=== PATIENT | female | born 1940 | race Caucasian/White ===

== ENCOUNTER 2023-10-15 22:15 | Inpatient (IN) | payer MEDICARE, BC ==
[2023-10-15 22:59] VITALS: BMI 20.2
[2023-10-15] MEDS ORDERED: Acetaminophen 650 MG Suppository PR PRN (23:08)
[2023-10-15] MEDS ORDERED: Ondansetron ODT 4 MG TAB PO PRN (23:08)
[2023-10-15] MEDS ORDERED: Calcium Carbonate 500 MG ChewTAB PO PRN (23:08)
[2023-10-15] MEDS ORDERED: Ondansetron PF 4 MG/2 ML Vial IVP PRN (23:08)
[2023-10-16] MEDS: hydrALAZINE 20 MG/ML VIAL SLOW IVP PRN (00:27)
[2023-10-16] MEDS ORDERED: hydrALAZINE 20 MG/ML VIAL SLOW IVP PRN (00:37)
[2023-10-16 06:47] LABS: #Basophils Less than 0.03 10x3/uL (0.0-0.2); %Basophils 0.3 % (0.0-1.0); %Eosinophils 1.5 % (0.0-10.0); %Lymphocytes 17.5 % (21.0-51.0); %Monocytes 5.2 % (0.0-10.0); %Neutrophils 75.2 % (42.0-75.0); Hematocrit 39.8 % (36.0-47.0); Hemoglobin 13.2 g/dL (12.0-16.0); Mean Corpuscular HGB CONC 33.2 g/dL (32.0-36.0); Mean Corpuscular Hemoglobin 29.5 pg (27.0-31.0); Mean Platelet Volume 9.6 fL (7.4-10.4); Platelet Count 314 10x3/uL (130-400); RBC Distribution Width 14.7 % (11.5-14.5); Red Blood Cell (RBC) Count 4.47 mill/uL (4.20-5.40)
[2023-10-16 07:02] LABS: Hemoglobin A1c 5.6 % (4.0-6.0)
[2023-10-16 07:06] LABS: ALT (SGPT) 11 U/L (8-55); AST (SGOT) 13 U/L (5-34); Albumin 3.3 g/dL (3.4-4.8); Alkaline Phosphatase 77 U/L (40-110); Anion Gap 16 mmol/L (10-20); BUN (Urea Nitrogen) 10 mg/dL (9.8-20.1); Bilirubin, Total 0.4 mg/dL (0.2-1.2); Calc. Creatinine Clearance 61 mL/min (70-130); Calcium 9.4 mg/dL (7.8-10.44); Carbon Dioxide 22 mmol/L (23-31); Cardiac Risk 5.5 (Less than 4.5); Chloride 105 mmol/L (98-107); Cholesterol 225 mg/dl (< 200 Desired); Estimated GFR 89; Globulin 3.5 g/dL (2.4-3.5); Glucose 111 mg/dL (83-110); HDL Cholesterol 41 mg/dL (>60 Neg Risk); LDL Cholesterol, Calculated 159 mg/dL; Potassium 3.9 mmol/L (3.5-5.1); Protein, Total 6.8 g/dL (5.8-8.1); Sodium 139 mmol/L (136-145); Triglycerides 127 mg/dL (Less than 150)
[2023-10-16] MEDS: Amlodipine 5 MG TAB PO SCH (08:16)
[2023-10-16] MEDS: Aspirin 81 mg Enteric Coated Tablet PO SCH (08:16)
[2023-10-16] MEDS: Lorazepam 0.5 MG TAB PO SCH (09:53)
[2023-10-16] MEDS ORDERED: Iopamidol-370 76% 500 ML MDV (1 ML CHARGE) ONE (12:43)
[2023-10-16] MEDS: Acetaminophen 325 MG TAB PO PRN (20:20)
[2023-10-16] MEDS: Atorvastatin Calcium 40 MG TAB PO SCH (20:20)
[2023-10-17] MEDS ORDERED: Amlodipine 5 MG TAB PO SCH (07:25)
[2023-10-17] MEDS: Clopidogrel Bisulfate 75 MG TAB PO SCH (08:15)
[2023-10-17] MEDS: Amlodipine 10 MG TAB PO SCH (08:15)
[2023-10-18 08:58] VITALS: BP 184/87
[2023-10-18] MEDS ORDERED: EPINEPHrine 1 MG/ML VIAL ONE (10:06)
[2023-10-18] MEDS ORDERED: Heparin 5,000 UNITS/ML VIAL ONE (10:06)
[2023-10-18] MEDS ORDERED: Bupivacaine PF 0.5% 30 ML VIAL ONE (10:07)
[2023-10-18] MEDS ORDERED: CEFAZOLIN 2 GM VIAL ONE ×2 (10:38→14:02)
[2023-10-18] MEDS ORDERED: Sodium Chloride 0.9% 100 ML ONE ×2 (10:38→14:02)
[2023-10-18] MEDS ORDERED: PROPOFOL 20 ML ONE (10:50)
[2023-10-18] MEDS ORDERED: fentaNYL PF 100 MCG/2 ML SYRINGE ONE (10:50)
[2023-10-18] MEDS ORDERED: Rocuronium Bromide 10 MG/ML (10ML VIAL) ONE (11:00)
[2023-10-18] MEDS ORDERED: ePHEDrine Sulfate 50 MG/10 ML VIAL ONE (11:14)
[2023-10-18] MEDS ORDERED: PHENYLEPHRINE-NS 100 MCG/ML 10 ML SYRINGE ONE (11:43)
[2023-10-18] MEDS ORDERED: Dexamethasone 20 MG/5 ML VIAL ONE (11:49)
[2023-10-18] MEDS ORDERED: Ondansetron PF 4 MG/2 ML Vial ONE (11:49)
[2023-10-18] MEDS ORDERED: CEFAZOLIN 2 GM in Sodium Chloride 0.9% 100 ML IVPB SCH (12:00)
[2023-10-18] MEDS ORDERED: Nitroglycerin 50 MG/250 ML BOT 250 ML IVPB PRN (12:55)
[2023-10-18] MEDS ORDERED: fentaNYL 50 mcg/mL 1 mL Vial SLOW IVP PRN (12:55)
[2023-10-18] MEDS ORDERED: traMADol HCl 50 MG TAB PO PRN ×2 (12:55)
[2023-10-18] MEDS ORDERED: Ipratropium/Albuterol 3 ML NEB NEB PRN (12:55)
[2023-10-18] MEDS ORDERED: Phenylephrine 40 MG/NS 250 ML 40 MG in Premix 1 BAG IVPB PRN (13:55)
[2023-10-18] MEDS: Sodium Chloride 0.9% 1,000 ML IV SCH (14:08)
[2023-10-18] MEDS: Acetaminophen 325 MG TAB PO PRN (16:19)
[2023-10-18] MEDS: CEFAZOLIN 2 GM in Sodium Chloride 0.9% 100 ML IVPB SCH (17:27)
[2023-10-18] MEDS: Losartan 25 MG TAB PO SCH (23:44)
[2023-10-19] MEDS ORDERED: Melatonin 3 MG TAB PO PRN (00:40)
[2023-10-19] MEDS: Melatonin 3 MG TAB PO SCH (00:59)
[2023-10-19] MEDS: Aspirin Chewable 81 MG TAB PO SCH (08:01)
[2023-10-19] MEDS: Losartan 25 MG TAB PO SCH (08:01)
[2023-10-19 08:09] VITALS: TEMP 98.3
== END 2023-10-19 10:38 | disposition home or self-care (01) | DRG 35 ==
LOC: 2SW 22:15 → OBSVTOIN 10-16 14:22 → CCU 10-18 11:00
PROVIDERS: ADMIT Family Medicine; ATTEND Family Medicine
PROC: 037K3DZ Dilation of Right Internal Carotid Artery with Intraluminal Device, Percutaneous Approach (ICD-10-PCS; principal; 2023-10-18)
PROC: B313YZZ Fluoroscopy of Right Common Carotid Artery using Other Contrast (ICD-10-PCS; 2023-10-18)
DX: I63.231 Cerebral infarction due to unspecified occlusion or stenosis of right carotid arteries (principal); I16.1 Hypertensive emergency; H35.30 Unspecified macular degeneration; I10 Essential (primary) hypertension; Z88.2 Allergy status to sulfonamides; Z79.899 Other long term (current) drug therapy
CPT/HCPCS: 36415; 70496; 70498; 70551; 80053; 80061; 83036; 84443; 85025; 93306; 96374; C1725; C1769; C1876; C1884; G0378; J0171; J0360; J0665; J1100; J1644; J2405; J2704; J3490; J7050; Q9967

== ENCOUNTER 2024-02-01 07:24 | Outpatient (CLI) | payer MEDICARE, BC ==
[~2024-02-01 07:24] MED LIST: Iopamidol 370 76% 100 ML VIAL ONE
== END 2024-02-01 07:25 | disposition home or self-care (01) ==
LOC: CT 07:24
PROVIDERS: ATTEND Internal Medicine Cardiovascular Disease
DX: I71.40 Abdominal aortic aneurysm, without rupture, unspecified (principal)
CPT/HCPCS: 36415; 74174; 82565; Q9967

== ENCOUNTER 2024-02-21 10:00 | Inpatient (IN) | payer MEDICARE, BC ==
[2024-02-21 12:17] LABS: #Basophils Less than 0.03 10x3/uL (0.0-0.2); %Basophils 0.3 % (0.0-1.0); %Eosinophils 4.6 % (0.0-10.0); %Lymphocytes 22.6 % (21.0-51.0); %Monocytes 6.5 % (0.0-10.0); %Neutrophils 65.7 % (42.0-75.0); Hematocrit 37.9 % (36.0-47.0); Hemoglobin 12.1 g/dL (12.0-16.0); Mean Corpuscular HGB CONC 31.9 g/dL (32.0-36.0); Mean Corpuscular Hemoglobin 28.7 pg (27.0-31.0); Mean Corpuscular Volume 89.8 fL (78.0-98.0); Mean Platelet Volume 10.7 fL (7.4-10.4); Platelet Count 329 10x3/uL (130-400); RBC Distribution Width 14.7 % (11.5-14.5); Red Blood Cell (RBC) Count 4.22 mill/uL (4.20-5.40)
[2024-02-21 12:33] LABS: Anion Gap 15 mmol/L (10-20); BUN (Urea Nitrogen) 17 mg/dL (9.8-20.1); Calc. Creatinine Clearance 0 mL/min (70-130); Calcium 9.5 mg/dL (7.8-10.44); Carbon Dioxide 25 mmol/L (23-31); Chloride 103 mmol/L (98-107); Estimated GFR 64; Glucose 95 mg/dL (83-110); Sodium 139 mmol/L (136-145)
[2024-02-22] MEDS ORDERED: Heparin 10,000 UNITS/ 10 ML VIAL ONE ×2 (06:33→08:36)
[2024-02-22] MEDS ORDERED: EPINEPHrine 1 MG/ML VIAL ONE (06:34)
[2024-02-22] MEDS ORDERED: Bupivacaine PF 0.5% 30 ML VIAL ONE (06:34)
[2024-02-22] MEDS ORDERED: fentaNYL PF 100 MCG/2 ML SYRINGE ONE (06:45)
[2024-02-22] MEDS ORDERED: PROPOFOL 20 ML ONE (06:51)
[2024-02-22] MEDS ORDERED: Rocuronium Bromide 10 MG/ML (10ML VIAL) ONE (06:52)
[2024-02-22] MEDS ORDERED: Dexamethasone 4 mg/ml Vial ONE (06:52)
[2024-02-22] MEDS ORDERED: Ondansetron PF 4 MG/2 ML Vial ONE (06:52)
[2024-02-22] MEDS ORDERED: Lidocaine 1% PF 5 ML VIAL ONE (06:52)
[2024-02-22] MEDS ORDERED: PHENYLEPHRINE-NS 100 MCG/ML 10 ML SYRINGE ONE (06:59)
[2024-02-22] MEDS ORDERED: CEFAZOLIN 2 GM VIAL ONE (07:27)
[2024-02-22] MEDS ORDERED: Glycopyrrolate 0.2 MG/ML 5 ML SYRINGE ONE (08:26)
[2024-02-22] MEDS ORDERED: Ondansetron HCl/PF 4 MG/2 ML Vial IVP PRN (08:31)
[2024-02-22] MEDS ORDERED: Promethazine HCl 25 MG/ML VIAL IM PRN (08:31)
[2024-02-22] MEDS ORDERED: Labetalol HCl 100 MG/20 ML VIAL ONE (08:54)
[2024-02-22] MEDS ORDERED: SUGAMMADEX SODIUM 200 MG/2 ML VIAL ONE (09:19)
[2024-02-22] MEDS ORDERED: Protamine Sulfate 50 MG/5 ML VIAL ONE (09:22)
[2024-02-22] MEDS ORDERED: hydrALAZINE 20 MG/ML VIAL SLOW IVP PRN (10:16)
[2024-02-22] MEDS ORDERED: Phenylephrine 40 MG in Sodium Chloride 0.9% 250 ML 250 ML IVPB PRN (10:16)
[2024-02-22] MEDS ORDERED: fentaNYL 50 mcg/mL 1 mL Vial SLOW IVP PRN (10:16)
[2024-02-22] MEDS ORDERED: Ondansetron PF 4 MG/2 ML Vial IVP PRN (10:16)
[2024-02-22] MEDS ORDERED: fentaNYL 50 mcg/mL 1 mL Vial ONE (10:23)
[2024-02-22] MEDS: Sodium Chloride 0.9% 1,000 ML IV SCH (11:00)
[2024-02-22 11:55] VITALS: BMI 20.9
[2024-02-22] MEDS: CEFAZOLIN 2 GM in Sodium Chloride 0.9% 100 ML IVPB SCH (13:50)
[2024-02-22] MEDS: FLU (Fluad Triv) TS24-25 (65UP)/MF59C/PF 45 MCG/0.5 ML Syringe IM ONE (14:15)
[2024-02-22] MEDS: traMADol HCl 50 MG TAB PO PRN (15:05)
[2024-02-22] MEDS: Acetaminophen 325 MG TAB PO PRN (17:35)
[2024-02-22] MEDS: Losartan 25 MG TAB PO SCH (20:23)
[2024-02-23 04:20] VITALS: TEMP 98.6
[2024-02-23 04:30] LABS: #Basophils Less than 0.03 10x3/uL (0.0-0.2); %Basophils 0.2 % (0.0-1.0); %Eosinophils 0.4 % (0.0-10.0); %Lymphocytes 14.1 % (21.0-51.0); %Monocytes 7.7 % (0.0-10.0); %Neutrophils 77.3 % (42.0-75.0); Hematocrit 30.8 % (36.0-47.0); Hemoglobin 9.9 g/dL (12.0-16.0); Mean Corpuscular HGB CONC 32.1 g/dL (32.0-36.0); Mean Corpuscular Hemoglobin 28.9 pg (27.0-31.0); Mean Corpuscular Volume 89.8 fL (78.0-98.0); Mean Platelet Volume 10.7 fL (7.4-10.4); Platelet Count 268 10x3/uL (130-400); RBC Distribution Width 14.4 % (11.5-14.5); Red Blood Cell (RBC) Count 3.43 mill/uL (4.20-5.40)
[2024-02-23 04:54] LABS: Anion Gap 13 mmol/L (10-20); BUN (Urea Nitrogen) 21 mg/dL (9.8-20.1); Calc. Creatinine Clearance 41 mL/min (70-130); Calcium 8.3 mg/dL (7.8-10.44); Carbon Dioxide 24 mmol/L (23-31); Chloride 105 mmol/L (98-107); Estimated GFR 59; Glucose 116 mg/dL (83-110); Potassium 3.9 mmol/L (3.5-5.1); Sodium 138 mmol/L (136-145)
[2024-02-23] MEDS: Polyethylene Glycol 3350 17 GM Packet PO SCH (08:11)
[2024-02-23] MEDS: Amlodipine 10 MG TAB PO SCH (08:21)
[2024-02-23] MEDS ORDERED: Aspirin 81 mg Enteric Coated Tablet PO SCH (21:00)
[2024-02-24] MEDS ORDERED: Loratadine 10 MG TAB PO SCH (09:00)
[2024-02-24] MEDS ORDERED: Amlodipine 10 MG TAB PO SCH (09:00)
[2024-02-24] MEDS ORDERED: Atorvastatin Calcium 40 MG TAB PO SCH (21:00)
== END 2024-02-23 09:48 | disposition home or self-care (01) | DRG 269 ==
LOC: SURG A 02-22 06:19 → CCU 02-22 11:01
PROVIDERS: ADMIT Thoracic Surgery (Cardiothoracic Vascular Surgery); ATTEND Thoracic Surgery (Cardiothoracic Vascular Surgery)
PROC: 04V03DZ Restriction of Abdominal Aorta with Intraluminal Device, Percutaneous Approach (ICD-10-PCS; principal; 2024-02-22)
DX: I71.43 Infrarenal abdominal aortic aneurysm, without rupture (principal); I10 Essential (primary) hypertension; Z79.899 Other long term (current) drug therapy; Z98.890 Other specified postprocedural states; Z88.2 Allergy status to sulfonamides
CPT/HCPCS: 71045; 80048; 85025; 86850; 86900; 86901; C1760; C1769; C1889; J0171; J0665; J1100; J1644; J2405; J2704; J2720; J3010